=== PATIENT | male | born 2000 | race Caucasian/White ===

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

== ENCOUNTER 2018-01-30 19:12 | Emergency (ER) | payer OTHER | END 2018-01-30 22:27 | disposition home or self-care (01) | LOC: FTE 19:12 | DX: Z76.0 Encounter for issue of repeat prescription (principal); J45.909 Unspecified asthma, uncomplicated | CPT/HCPCS: 99284; Z7502 ==